=== PATIENT | male | born 1945 | race Caucasian/White ===

== ENCOUNTER 2018-03-03 15:21 | Inpatient (IN) | payer MEDICARE, MEDICAID ==
[~2018-03-03] VITALS: Ht 180.3 cm; Wt 95.7 kg
[2018-03-03] MEDS ORDERED: SODIUM CHLORIDE 0.9% 1,000 ML IV ONE (15:38)
[2018-03-03 16:18] LABS: BG BASE EXCESS 4.2 mmol/L (-2.0-2.0); BG CARBOXYHEMOGLOBIN 1.3 % (0.5-1.5); BG DEOXYHEMOGLOBIN 3.1 % (0.0-5.0); BG FRACTION INSPIRED OXYGEN 28; BG HCO3 ACT 30.1 mmol/L (22.0-26.0); BG METHEMOGLOBIN 0.3 % (0.0-1.5); BG OXYGEN SATURATION 96.8 % (92.0-98.5); BG OXYHEMOGLOBIN 95.3 % (94.0-97.0); BG PCO2 50.2 mmHg (35.0-45.0); BG PH 7.396 (7.350-7.450); BG SAMPLE SITE LEFT RADIAL; BG TOTAL HEMOGLOBIN 14.1 g/dL (12.0-18.0); BG VENT MODE NASAL CANNULA
[2018-03-03 16:59] LABS: BASOPHILS % 0.1 % (0.0-2.0); EOSINOPHILS % 0.3 % (0.0-5.0); HEMATOCRIT. 45.1 % (42.0-52.0); HEMOGLOBIN. 14.3 g/dL (14.0-18.0); LYMPHOCYTES % 9.7 % (20.0-50.0); MEAN CORPUSCULAR VOLUME 85.2 fL (80.0-94.0); MEAN PLATELET VOLUME 10.9 fl (7.4-10.4); MONOCYTES % 12.6 % (2.0-8.0); NEUTROPHILS % 77.3 % (40.0-76.0); PLATELET 110 x1000/uL (130-400); RED CELL DISTRIBUTION WIDTH 16.2 % (11.6-14.6)
[2018-03-03 17:01] LABS: CHLORIDE 99 mEq/L (98-107); INR 1.2; PARTIAL THROMBOPLASTIN TIME 25.9 sec (23.4-31.0); PROTHROMBIN TIME 12.5 sec (9.1-11.1)
[2018-03-03 17:07] LABS: ETHANOL BLOOD < 10 mg/dL
[2018-03-03] MEDS ORDERED: LEVOFLOXACIN 500MG PREMIX 100 ML IV ONE (17:30)
[2018-03-03 20:30] LABS: METHADONE URINE SCREEN NEGATIVE (NEGATIVE); OPIATES URINE SCREEN PRESUMTIVE POSITIVE (NEGATIVE)
[2018-03-03 20:31] LABS: *AMPHETAMINES SCREEN URINE NEGATIVE (NEGATIVE); *BARBITURATES SCREEN URINE NEGATIVE (NEGATIVE); *BENZODIAZEPINES SCREEN URINE NEGATIVE (NEGATIVE); *COCAINE SCREEN URINE NEGATIVE (NEGATIVE); CANNABINOID URINE SCREEN NEGATIVE (NEGATIVE); PHENCYCLIDINE URINE SCREEN NEGATIVE (NEGATIVE)
[2018-03-03 20:45] LABS: KETONES URINE NEGATIVE (NEGATIVE); LEUKOCYTE ESTERASE URINE NEGATIVE (NEGATIVE); NITRITE URINE NEGATIVE (NEGATIVE); OCCULT BLOOD URINE NEGATIVE (NEGATIVE); PROTEIN URINE NEGATIVE (NEGATIVE); SPECIFIC GRAVITY URINE 1.017 (1.005-1.030)
[2018-03-03 20:48] LABS: CLARITY URINE SLIGHTLY HAZY (CLEAR)
[2018-03-03 20:49] LABS: COLOR URINE YELLOW (YELLOW)
[2018-03-04] VITALS (12 sets, daily range): BP systolic 99–146; BP diastolic 50–78
[2018-03-04] MEDS ORDERED: CARV6.2548 MT (02:09)
[2018-03-04] MEDS ORDERED: BISA10SU62 RC (02:23)
[2018-03-04] MEDS ORDERED: DILT60TA35 MT (02:23)
[2018-03-04] MEDS ORDERED: FURO40TA5 MT (02:23)
[2018-03-04] MEDS ORDERED: LACT10SO7 PO (02:23)
[2018-03-04] MEDS ORDERED: DOCU250C14 MT (02:23)
[2018-03-04] MEDS ORDERED: CLON0.1T PO (02:23)
[2018-03-04] MEDS ORDERED: LOSA25TA12 MT (02:23)
[2018-03-04] MEDS ORDERED: AMIN30LI2 PO (02:36)
[2018-03-04] MEDS ORDERED: MULT-230 MT (02:36)
[2018-03-04] MEDS ORDERED: LOV40 SQ (02:36)
[2018-03-04] MEDS ORDERED: ZINC220T MT (02:36)
[2018-03-04] MEDS ORDERED: ASCO500C15 MT (02:36)
[2018-03-04] MEDS ORDERED: INSU100I13 SQ (02:36)
[2018-03-04] MEDS ORDERED: HYDR-4001 MT (02:36)
[2018-03-04] MEDS ORDERED: IPRATROPIUM/ALBUTEROL 0.5-3(2.5)MG/3ML NEB INH PRN (03:00)
[2018-03-04] MEDS ORDERED: ENOXAPARIN 120MG/0.8ML SYR SUBCUT SCH (04:00)
[2018-03-04] MEDS ORDERED: DEXTROSE 50% WATER 50ML SYRINGE IV PRN (06:30)
[2018-03-04] MEDS: BLOOD SUGAR DIAGNOSTIC STRIP TEST SCH ×4 (06:38→21:37)
[2018-03-04] MEDS: INSULIN LISPRO 100 UNITS/ML SUBCUT SCH ×5 (08:14→21:38)
[2018-03-04] MEDS ORDERED: IPRATROPIUM/ALBUTEROL 0.5-3(2.5)MG/3ML NEB HHN PRN (16:45)
[2018-03-04] MEDS ORDERED: WARFARIN SODIUM 3MG TABLET PO NR (18:00)
[2018-03-04] MEDS: CEFTRIAXONE 1 G PREMIX 50 ML IV SCH (18:31)
[2018-03-04] MEDS: DIGOXIN 125MCG TABLET PO SCH (18:34)
[2018-03-04 19:22] LABS: PROTHROMBIN TIME 40.4 sec (9.1-11.1)
[2018-03-04] MEDS: ACETAMINOPHEN 325MG TABLET PO PRN (21:36)
[2018-03-04] MEDS: NYSTATIN 100,000 UNITS/GM CREAM 15GM TOP SCH (21:37)
[2018-03-04] MEDS ORDERED: HYDROCODONE/ACETAMINOPHEN 10/325MG TABLET PO PRN (22:30)
[2018-03-04] MEDS ORDERED: MORPHINE SULFATE 4 MG/ML CPJ (NOT FOR IM USE) IV NR (22:30)
[2018-03-04] MEDS ORDERED: HYDROCODONE/ACETAMINOPHEN 5/325MG TABLET PO PRN (22:30)
[2018-03-04 23:12] LABS: INR 4.1
[2018-03-05] VITALS (30 sets, daily range): BP systolic 92–150; BP diastolic 40–91
[2018-03-05] MEDS: IPRATROPIUM/ALBUTEROL 0.5-3(2.5)MG/3ML NEB HHN SCH (02:03)
[2018-03-05] MEDS: INSULIN LISPRO 100 UNITS/ML SUBCUT SCH ×4 (06:37→22:05)
[2018-03-05] MEDS: BLOOD SUGAR DIAGNOSTIC STRIP TEST SCH ×4 (06:37→21:00)
[2018-03-05] MEDS ORDERED: LIDOCAINE HCL 1% 10 MG/ML 10ML VIAL ONE (07:58)
[2018-03-05] MEDS ORDERED: BACITRACIN ZINC 15GM TUBE TOP ONE (07:58)
[2018-03-05] MEDS ORDERED: HEPARIN SODIUM 1,000 UNIT/1ML VIAL IV ONE (07:59)
[2018-03-05] MEDS ORDERED: GELATIN SPONGE,COMPRESSED SZ 100 ONE (07:59)
[2018-03-05] MEDS ORDERED: BUPIVACAINE HCL/PF 0.5% (5MG/ML) 10ML ONE (07:59)
[2018-03-05] MEDS ORDERED: THROMBIN (BOVINE) 5000 UNITS/VIAL TOP ONE (07:59)
[2018-03-05] MEDS ORDERED: SODIUM CHLORIDE 0.9% 1,000 ML ONE (08:00)
[2018-03-05] MEDS ORDERED: BACITRACIN 50,000 UNITS/VIAL ONE (08:00)
[2018-03-05] MEDS: NYSTATIN 100,000 UNITS/GM CREAM 15GM TOP SCH ×2 (08:33→21:00)
[2018-03-05] MEDS ORDERED: PHENYLEPHRINE HCL 10 MG/ML 1ML (IV VIAL) IV ONE (09:10)
[2018-03-05] MEDS ORDERED: CEFAZOLIN 1000MG PREMIX 50 ML IV SCH (09:30)
[2018-03-05] MEDS ORDERED: MORPHINE SULFATE 2 MG/ML CPJ (NOT FOR IM USE) IV PRN (09:30)
[2018-03-05] MEDS ORDERED: MORPHINE SULFATE 4 MG/ML CPJ (NOT FOR IM USE) IV PRN (10:00)
[2018-03-05 13:07] LABS: BG BASE EXCESS 6.6 mmol/L (-2.0-2.0); BG CARBOXYHEMOGLOBIN 1.4 % (0.5-1.5); BG DEOXYHEMOGLOBIN 5.2 % (0.0-5.0); BG HCO3 ACT 31.7 mmol/L (22.0-26.0); BG METHEMOGLOBIN 0.2 % (0.0-1.5); BG OXYGEN SATURATION 94.7 % (92.0-98.5); BG OXYHEMOGLOBIN 93.2 % (94.0-97.0); BG PCO2 46.7 mmHg (35.0-45.0); BG PO2 69.6 mmHg (75.0-100.0); BG SAMPLE SITE RIGHT BRACHIAL; BG TOTAL HEMOGLOBIN 15.4 g/dL (12.0-18.0); BG VENT MODE ROOM AIR
[2018-03-05] MEDS ORDERED: VERAPAMIL HCL 2.5 MG/1 ML 2ML VIAL IV PRN (14:15)
[2018-03-05] MEDS: DILTIAZEM HCL 60MG TABLET PO SCH ×2 (14:50→21:54)
[2018-03-05] MEDS: DIGOXIN 125MCG TABLET PO SCH (17:18)
[2018-03-05] MEDS: CEFTRIAXONE 1 G PREMIX 50 ML IV SCH (17:52)
[2018-03-05] MEDS: ACETAMINOPHEN 325MG TABLET PO PRN (21:53)
[2018-03-05 22:56] LABS: INR 1.2; PROTHROMBIN TIME 11.7 sec (9.1-11.1)
[2018-03-06] VITALS (33 sets, daily range): BP systolic 89–160; BP diastolic 38–96
[2018-03-06 05:13] LABS: BASOPHILS % 0.1 % (0.0-2.0); EOSINOPHILS % 0.3 % (0.0-5.0); HEMATOCRIT. 46.8 % (42.0-52.0); HEMOGLOBIN. 14.7 g/dL (14.0-18.0); LYMPHOCYTES % 12.4 % (20.0-50.0); MEAN CORPUSCULAR HEMOGLOBIN 26.7 pg (28.0-32.0); MEAN CORPUSCULAR VOLUME 85.2 fL (80.0-94.0); MONOCYTES % 14.8 % (2.0-8.0); NEUTROPHILS % 72.4 % (40.0-76.0); PLATELET 130 x1000/uL (130-400); RED CELL DISTRIBUTION WIDTH 16.3 % (11.6-14.6)
[2018-03-06 05:16] LABS: CHLORIDE 102 mEq/L (98-107)
[2018-03-06 05:19] LABS: INR 1.2; PROTHROMBIN TIME 12.5 sec (9.1-11.1)
[2018-03-06] MEDS: DILTIAZEM HCL 60MG TABLET PO SCH ×3 (05:51→21:16)
[2018-03-06 07:38] LABS: BG BASE EXCESS 7.3 mmol/L (-2.0-2.0); BG CARBOXYHEMOGLOBIN 1.3 % (0.5-1.5); BG DEOXYHEMOGLOBIN 1.4 % (0.0-5.0); BG FRACTION INSPIRED OXYGEN 24; BG HCO3 ACT 35.3 mmol/L (22.0-26.0); BG METHEMOGLOBIN 0.4 % (0.0-1.5); BG OXYGEN SATURATION 98.6 % (92.0-98.5); BG OXYHEMOGLOBIN 96.9 % (94.0-97.0); BG PCO2 64.3 mmHg (35.0-45.0); BG PH 7.358 (7.350-7.450); BG PO2 134.1 mmHg (75.0-100.0); BG SAMPLE SITE RIGHT BRACHIAL; BG TOTAL HEMOGLOBIN 15.1 g/dL (12.0-18.0); BG VENT MODE NASAL CANNULA
[2018-03-06] MEDS: BLOOD SUGAR DIAGNOSTIC STRIP TEST SCH ×4 (07:50→20:46)
[2018-03-06] MEDS: IPRATROPIUM/ALBUTEROL 0.5-3(2.5)MG/3ML NEB HHN SCH ×3 (08:20→20:51)
[2018-03-06] MEDS: INSULIN LISPRO 100 UNITS/ML SUBCUT SCH ×4 (09:14→21:17)
[2018-03-06] MEDS: NYSTATIN 100,000 UNITS/GM CREAM 15GM TOP SCH ×2 (09:16→21:18)
[2018-03-06] MEDS ORDERED: FUROSEMIDE 40MG/4ML VIAL IVP SCH (12:45)
[2018-03-06] MEDS ORDERED: FUROSEMIDE 40MG TABLET PO NR (13:45)
[2018-03-06] MEDS ORDERED: SULFAMETHOXAZOLE/TRIMETHOPRIM 800/160MG TABLET PO ONE (17:00)
[2018-03-06] MEDS ORDERED: SULFAMETHOXAZOLE/TRIMETHOPRIM 800/160MG TABLET PO NR (17:00)
[2018-03-06] MEDS: CEFTRIAXONE 1 G PREMIX 50 ML IV SCH ×2 (18:08→18:11)
[2018-03-06] MEDS: DIGOXIN 125MCG TABLET PO SCH (18:38)
[2018-03-06] MEDS ORDERED: FUROSEMIDE 40MG TABLET PO SCH (21:00)
[2018-03-06] MEDS: ACETAMINOPHEN 325MG TABLET PO PRN (21:11)
[2018-03-07] VITALS (43 sets, daily range): BP systolic 101–154; BP diastolic 50–95
[2018-03-07] MEDS ORDERED: FUROSEMIDE 40MG TABLET PO SCH ×2 (04:00→21:00)
[2018-03-07] MEDS: DILTIAZEM HCL 60MG TABLET PO SCH ×3 (05:00→21:05)
[2018-03-07 05:44] LABS: BASOPHILS % 0.3 % (0.0-2.0); EOSINOPHILS % 0.9 % (0.0-5.0); HEMATOCRIT. 44.6 % (42.0-52.0); HEMOGLOBIN. 14.3 g/dL (14.0-18.0); LYMPHOCYTES % 12.9 % (20.0-50.0); MEAN CORPUSCULAR HEMOGLOBIN 26.8 pg (28.0-32.0); MEAN CORPUSCULAR VOLUME 83.5 fL (80.0-94.0); MEAN PLATELET VOLUME 10.5 fl (7.4-10.4); MONOCYTES % 12.7 % (2.0-8.0); NEUTROPHILS % 73.2 % (40.0-76.0); PLATELET 111 x1000/uL (130-400); RED BLOOD CELL COUNT 5.34 mill/uL (4.7-6.1); RED CELL DISTRIBUTION WIDTH 16.2 % (11.6-14.6)
[2018-03-07 06:25] LABS: CHLORIDE 101 mEq/L (98-107)
[2018-03-07] MEDS: BLOOD SUGAR DIAGNOSTIC STRIP TEST SCH ×4 (07:50→21:02)
[2018-03-07] MEDS: IPRATROPIUM/ALBUTEROL 0.5-3(2.5)MG/3ML NEB HHN SCH ×3 (07:58→20:19)
[2018-03-07] MEDS: INSULIN LISPRO 100 UNITS/ML SUBCUT SCH ×4 (08:20→21:06)
[2018-03-07] MEDS: NYSTATIN 100,000 UNITS/GM CREAM 15GM TOP SCH ×2 (08:56→21:02)
[2018-03-07] MEDS ORDERED: LOSARTAN POTASSIUM 25 MG TABLET PO SCH (09:00)
[2018-03-07 09:01] LABS: BG BASE EXCESS 7.2 mmol/L (-2.0-2.0); BG CARBOXYHEMOGLOBIN 1.8 % (0.5-1.5); BG DEOXYHEMOGLOBIN 5.5 % (0.0-5.0); BG FRACTION INSPIRED OXYGEN 21; BG HCO3 ACT 31.6 mmol/L (22.0-26.0); BG METHEMOGLOBIN 0.3 % (0.0-1.5); BG OXYGEN SATURATION 94.4 % (92.0-98.5); BG OXYHEMOGLOBIN 92.4 % (94.0-97.0); BG PCO2 43.4 mmHg (35.0-45.0); BG PO2 69.9 mmHg (75.0-100.0); BG SAMPLE SITE RIGHT BRACHIAL; BG TOTAL HEMOGLOBIN 14.4 g/dL (12.0-18.0); BG VENT MODE ROOM AIR
[2018-03-07] MEDS: FUROSEMIDE 40MG/4ML VIAL IVP SCH ×2 (12:03→23:05)
[2018-03-07] MEDS: LOSARTAN POTASSIUM 25 MG TABLET PO SCH (14:44)
[2018-03-07] MEDS: CEFTRIAXONE 1 G PREMIX 50 ML IV SCH (17:45)
[2018-03-07] MEDS: DIGOXIN 125MCG TABLET PO SCH (17:46)
[2018-03-08] VITALS (47 sets, daily range): BP systolic 97–178; BP diastolic 16–110
[2018-03-08] MEDS: IPRATROPIUM/ALBUTEROL 0.5-3(2.5)MG/3ML NEB HHN SCH ×4 (00:42→21:06)
[2018-03-08] MEDS: DILTIAZEM HCL 60MG TABLET PO SCH ×3 (05:04→22:41)
[2018-03-08 05:41] LABS: BASOPHILS % 0.2 % (0.0-2.0); EOSINOPHILS % 1.5 % (0.0-5.0); HEMATOCRIT. 44.3 % (42.0-52.0); HEMOGLOBIN. 14.2 g/dL (14.0-18.0); LYMPHOCYTES % 16.8 % (20.0-50.0); MEAN CORPUSCULAR HEMOGLOBIN 26.8 pg (28.0-32.0); MEAN CORPUSCULAR VOLUME 83.8 fL (80.0-94.0); MEAN PLATELET VOLUME 10.5 fl (7.4-10.4); MONOCYTES % 14.7 % (2.0-8.0); NEUTROPHILS % 66.8 % (40.0-76.0); PLATELET 105 x1000/uL (130-400); RED BLOOD CELL COUNT 5.28 mill/uL (4.7-6.1); RED CELL DISTRIBUTION WIDTH 16.2 % (11.6-14.6)
[2018-03-08 05:47] LABS: CHLORIDE 98 mEq/L (98-107)
[2018-03-08 07:15] LABS: INR 1.2; PROTHROMBIN TIME 12.3 sec (9.1-11.1)
[2018-03-08] MEDS ORDERED: HEPARIN 100 UNITS/1 ML VIAL ONE (07:19)
[2018-03-08] MEDS ORDERED: BACITRACIN ZINC 15GM TUBE TOP ONE (07:20)
[2018-03-08] MEDS ORDERED: BUPIVACAINE HCL/PF 0.5% (5MG/ML) 10ML ONE (07:20)
[2018-03-08] MEDS ORDERED: THROMBIN (BOVINE) 5000 UNITS/VIAL TOP ONE (07:20)
[2018-03-08] MEDS ORDERED: GELATIN SPONGE,COMPRESSED SZ 100 ONE (07:20)
[2018-03-08] MEDS ORDERED: LIDOCAINE HCL 1% 10 MG/ML 10ML VIAL ONE (07:20)
[2018-03-08] MEDS ORDERED: HEPARIN SODIUM 1,000 UNIT/1ML VIAL IV ONE (07:21)
[2018-03-08] MEDS ORDERED: BACITRACIN 50,000 UNITS/VIAL ONE (07:21)
[2018-03-08] MEDS ORDERED: NORMAL SALINE 0.9% 10 ML SYR ONE (07:22)
[2018-03-08] MEDS ORDERED: MORPHINE SULFATE 4 MG/ML CPJ (NOT FOR IM USE) IV PRN (07:30)
[2018-03-08] MEDS: BLOOD SUGAR DIAGNOSTIC STRIP TEST SCH ×4 (07:50→21:00)
[2018-03-08] MEDS ORDERED: FENTANYL CITRATE/PF 50MCG/ML 2ML VIAL ONE (07:54)
[2018-03-08] MEDS ORDERED: PROPOFOL 200MG/20ML VIAL IV ONE ×2 (07:54→09:31)
[2018-03-08] MEDS ORDERED: MIDAZOLAM HCL 2 MG/2 ML VIAL ONE (07:55)
[2018-03-08] MEDS ORDERED: DEXAMETHASONE 4MG/ML 1ML VIAL ONE (07:58)
[2018-03-08] MEDS ORDERED: ONDANSETRON HCL 4MG/2ML INJ ONE (07:58)
[2018-03-08] MEDS ORDERED: ROCURONIUM BROMIDE 10MG/ML VIAL 5ML IV ONE (08:07)
[2018-03-08] MEDS: INSULIN LISPRO 100 UNITS/ML SUBCUT SCH ×4 (08:20→21:00)
[2018-03-08] MEDS ORDERED: CEFAZOLIN SODIUM 1000MG/VIAL ONE (08:23)
[2018-03-08] MEDS ORDERED: SODIUM CHLORIDE 0.9% 10ML VIAL ONE (08:23)
[2018-03-08] MEDS ORDERED: MEPERIDINE HCL/PF 25MG/ML CPJ IV PRN (08:30)
[2018-03-08] MEDS ORDERED: ONDANSETRON HCL 4MG/2ML INJ IV PRN (08:30)
[2018-03-08] MEDS ORDERED: LABETALOL 5MG/ML SYR 20 MG/4 ML SYRINGE IV PRN (08:30)
[2018-03-08] MEDS ORDERED: ALBUTEROL 90MCG/PUFF 17GM INHALER INH ONE (08:52)
[2018-03-08] MEDS ORDERED: LOSARTAN POTASSIUM 50 MG TABLET PO SCH (09:00)
[2018-03-08] MEDS ORDERED: GLYCOPYRROLATE 0.2 MG/ML 2ML VIAL ONE ×2 (09:32→09:37)
[2018-03-08] MEDS ORDERED: NEOSTIGMINE METHYLSULFATE 1MG/ML 10 ML VIAL ONE (09:32)
[2018-03-08] MEDS: HYDROMORPHONE HCL/PF 2MG/ML CPJ IV PRN ×2 (09:59→11:29)
[2018-03-08] MEDS: LOSARTAN POTASSIUM 25 MG TABLET PO SCH (10:18)
[2018-03-08] MEDS: FUROSEMIDE 40MG/4ML VIAL IVP SCH ×2 (10:18→23:30)
[2018-03-08] MEDS: NYSTATIN 100,000 UNITS/GM CREAM 15GM TOP SCH ×2 (10:18→22:40)
[2018-03-08] MEDS: DIGOXIN 125MCG TABLET PO SCH (17:22)
[2018-03-08] MEDS: CEFTRIAXONE 1 G PREMIX 50 ML IV SCH (17:26)
[2018-03-09] VITALS (16 sets, daily range): BP systolic 92–150; BP diastolic 44–98
[2018-03-09] MEDS: IPRATROPIUM/ALBUTEROL 0.5-3(2.5)MG/3ML NEB HHN SCH ×4 (00:58→20:24)
[2018-03-09] MEDS: BLOOD SUGAR DIAGNOSTIC STRIP TEST SCH ×4 (07:43→20:58)
[2018-03-09] MEDS: DILTIAZEM HCL 60MG TABLET PO SCH ×3 (07:43→20:58)
[2018-03-09] MEDS: LOSARTAN POTASSIUM 25 MG TABLET PO SCH (09:00)
[2018-03-09] MEDS: FUROSEMIDE 40MG/4ML VIAL IVP SCH (10:28)
[2018-03-09] MEDS: INSULIN LISPRO 100 UNITS/ML SUBCUT SCH ×4 (10:30→20:57)
[2018-03-09] MEDS: NYSTATIN 100,000 UNITS/GM CREAM 15GM TOP SCH ×2 (10:34→20:59)
[2018-03-09 13:05] LABS: CHLORIDE 99 mEq/L (98-107)
[2018-03-09] MEDS: ENOXAPARIN 100MG/ML SYR SUBCUT SCH (15:23)
[2018-03-09] MEDS: DIGOXIN 125MCG TABLET PO SCH (17:46)
[2018-03-09] MEDS: CEFTRIAXONE 1 G PREMIX 50 ML IV SCH (17:47)
[2018-03-10] VITALS (10 sets, daily range): BP systolic 99–136; BP diastolic 41–83
[2018-03-10] MEDS: IPRATROPIUM/ALBUTEROL 0.5-3(2.5)MG/3ML NEB HHN SCH ×4 (01:06→20:02)
[2018-03-10] MEDS: ENOXAPARIN 100MG/ML SYR SUBCUT SCH ×3 (02:26→21:22)
[2018-03-10] MEDS: DILTIAZEM HCL 60MG TABLET PO SCH (05:33)
[2018-03-10 07:01] LABS: BASOPHILS % 0.2 % (0.0-2.0); EOSINOPHILS % 0.7 % (0.0-5.0); HEMATOCRIT. 40.8 % (42.0-52.0); HEMOGLOBIN. 13.1 g/dL (14.0-18.0); LYMPHOCYTES % 14.6 % (20.0-50.0); MEAN CORPUSCULAR HEMOGLOBIN 26.5 pg (28.0-32.0); MEAN PLATELET VOLUME 10.6 fl (7.4-10.4); NEUTROPHILS % 71.5 % (40.0-76.0); PLATELET 87 x1000/uL (130-400); RED BLOOD CELL COUNT 4.92 mill/uL (4.7-6.1); RED CELL DISTRIBUTION WIDTH 16.4 % (11.6-14.6)
[2018-03-10 07:16] LABS: CHLORIDE 98 mEq/L (98-107)
[2018-03-10] MEDS: INSULIN LISPRO 100 UNITS/ML SUBCUT SCH ×4 (07:43→21:22)
[2018-03-10] MEDS: BLOOD SUGAR DIAGNOSTIC STRIP TEST SCH ×4 (07:43→21:22)
[2018-03-10] MEDS: FUROSEMIDE 40MG/4ML VIAL IVP SCH (08:49)
[2018-03-10] MEDS: LOSARTAN POTASSIUM 25 MG TABLET PO SCH (08:50)
[2018-03-10] MEDS ORDERED: POTASSIUM CHLORIDE 20MEQ TABLET SR PO NR (10:15)
[2018-03-10] MEDS: DILTIAZEM HCL 90MG TABLET PO SCH ×2 (14:28→21:27)
[2018-03-10] MEDS: NYSTATIN 100,000 UNITS/GM CREAM 15GM TOP SCH ×2 (14:28→21:24)
[2018-03-10] MEDS: DIGOXIN 125MCG TABLET PO SCH (17:45)
[2018-03-10] MEDS: CEFTRIAXONE 1 G PREMIX 50 ML IV SCH (17:46)
[2018-03-11] VITALS (12 sets, daily range): BP systolic 113–133; BP diastolic 58–82
[2018-03-11] MEDS: IPRATROPIUM/ALBUTEROL 0.5-3(2.5)MG/3ML NEB HHN SCH ×4 (00:08→20:33)
[2018-03-11 06:58] LABS: BASOPHILS % 0.2 % (0.0-2.0); EOSINOPHILS % 1.1 % (0.0-5.0); HEMATOCRIT. 39.4 % (42.0-52.0); HEMOGLOBIN. 12.9 g/dL (14.0-18.0); LYMPHOCYTES % 12.7 % (20.0-50.0); MEAN CORPUSCULAR HEMOGLOBIN 27.3 pg (28.0-32.0); MEAN CORPUSCULAR VOLUME 83.5 fL (80.0-94.0); MEAN PLATELET VOLUME 10.8 fl (7.4-10.4); MONOCYTES % 9.8 % (2.0-8.0); NEUTROPHILS % 76.2 % (40.0-76.0); PLATELET 102 x1000/uL (130-400); RED BLOOD CELL COUNT 4.72 mill/uL (4.7-6.1); RED CELL DISTRIBUTION WIDTH 16.5 % (11.6-14.6)
[2018-03-11] MEDS: DILTIAZEM HCL 90MG TABLET PO SCH ×3 (07:22→21:17)
[2018-03-11 07:44] LABS: CHLORIDE 98 mEq/L (98-107)
[2018-03-11] MEDS: BLOOD SUGAR DIAGNOSTIC STRIP TEST SCH ×4 (07:44→21:18)
[2018-03-11] MEDS: INSULIN LISPRO 100 UNITS/ML SUBCUT SCH ×4 (07:45→21:00)
[2018-03-11] MEDS: LOSARTAN POTASSIUM 25 MG TABLET PO SCH (09:30)
[2018-03-11] MEDS: FUROSEMIDE 40MG/4ML VIAL IVP SCH (09:30)
[2018-03-11] MEDS: ENOXAPARIN 100MG/ML SYR SUBCUT SCH ×2 (09:30→21:18)
[2018-03-11] MEDS: NYSTATIN 100,000 UNITS/GM CREAM 15GM TOP SCH ×2 (09:31→21:19)
[2018-03-11] MEDS: DIGOXIN 125MCG TABLET PO SCH (17:55)
[2018-03-11] MEDS: CEFTRIAXONE 1 G PREMIX 50 ML IV SCH (17:55)
[2018-03-12] VITALS (12 sets, daily range): BP systolic 103–130; BP diastolic 51–70
[2018-03-12] MEDS: IPRATROPIUM/ALBUTEROL 0.5-3(2.5)MG/3ML NEB HHN SCH ×4 (01:39→21:13)
[2018-03-12] MEDS: DILTIAZEM HCL 90MG TABLET PO SCH ×2 (05:57→15:07)
[2018-03-12] MEDS: INSULIN LISPRO 100 UNITS/ML SUBCUT SCH ×3 (08:00→17:50)
[2018-03-12] MEDS: LOSARTAN POTASSIUM 25 MG TABLET PO SCH (08:17)
[2018-03-12] MEDS: ENOXAPARIN 100MG/ML SYR SUBCUT SCH (08:18)
[2018-03-12] MEDS: BLOOD SUGAR DIAGNOSTIC STRIP TEST SCH ×3 (08:18→17:46)
[2018-03-12] MEDS ORDERED: FUROSEMIDE 40MG/4ML VIAL IVP SCH (09:00)
[2018-03-12 10:00] LABS: CHLORIDE 99 mEq/L (98-107)
[2018-03-12] MEDS: NYSTATIN 100,000 UNITS/GM CREAM 15GM TOP SCH (11:18)
[2018-03-12] MEDS ORDERED: POTASSIUM CHLORIDE 20MEQ TABLET SR PO NR (11:38)
[2018-03-12] MEDS: DIGOXIN 125MCG TABLET PO SCH (17:44)
== END 2018-03-12 22:15 | DRG 853 ==
LOC: ER 15:21 → 3WST 15:40 → EDBEDREQ 18:13 → ENRESERV 21:35 → CVICU 03-05 12:00 → 5EST 03-09 13:22
PROVIDERS: ADMIT Emergency Medicine; ATTEND Emergency Medicine
PROC: 0JB70ZZ Excision of Back Subcutaneous Tissue and Fascia, Open Approach (ICD-10-PCS; principal; 2018-03-04)
PROC: 02HV33Z Insertion of Infusion Device into Superior Vena Cava, Percutaneous Approach (ICD-10-PCS; 2018-03-07)
PROC: B548ZZA Ultrasonography of Superior Vena Cava, Guidance (ICD-10-PCS; 2018-03-07)
PROC: 5A09357 Assistance with Respiratory Ventilation, Less than 24 Consecutive Hours, Continuous Positive Airway Pressure (ICD-10-PCS; 2018-03-07)
PROC: 041L0JL Bypass Left Femoral Artery to Popliteal Artery with Synthetic Substitute, Open Approach (ICD-10-PCS; 2018-03-08)
PROC: 04CL0ZZ Extirpation of Matter from Left Femoral Artery, Open Approach (ICD-10-PCS; 2018-03-08)
PROC: 5A09357 Assistance with Respiratory Ventilation, Less than 24 Consecutive Hours, Continuous Positive Airway Pressure (ICD-10-PCS; 2018-03-12)
DX: A41.9 Sepsis, unspecified organism (principal); L89.153 Pressure ulcer of sacral region, stage 3; I50.43 Acute on chronic combined systolic (congestive) and diastolic (congestive) heart failure; J96.02 Acute respiratory failure with hypercapnia; E11.52 Type 2 diabetes mellitus with diabetic peripheral angiopathy with gangrene; I69.351 Hemiplegia and hemiparesis following cerebral infarction affecting right dominant side; E44.0 Moderate protein-calorie malnutrition; N39.0 Urinary tract infection, site not specified; I42.9 Cardiomyopathy, unspecified; D68.9 Coagulation defect, unspecified; I11.0 Hypertensive heart disease with heart failure; I48.2 Chronic atrial fibrillation; I27.20 Pulmonary hypertension, unspecified; I99.8 Other disorder of circulatory system; B96.20 Unspecified Escherichia coli [E. coli] as the cause of diseases classified elsewhere; B96.89 Other specified bacterial agents as the cause of diseases classified elsewhere; D69.6 Thrombocytopenia, unspecified; E78.5 Hyperlipidemia, unspecified; E87.6 Hypokalemia; I25.10 Atherosclerotic heart disease of native coronary artery without angina pectoris; Z89.511 Acquired absence of right leg below knee; Z99.3 Dependence on wheelchair; Z89.611 Acquired absence of right leg above knee; Z79.899 Other long term (current) drug therapy; Z79.4 Long term (current) use of insulin; Z68.29 Body mass index [BMI] 29.0-29.9, adult
CPT/HCPCS: 36415; 36569; 36600; 70450; 71045; 76937; 80048; 80053; 80305; 81003; 82375; 82805; 82962; 83605; 83690; 83735; 83880; 84134; 84484; 85025; 85610; 85730; 86850; 86900; 86920; 87040; 87077; 87086; 87186; 88304; 93005; 93306; 94640; 94660; 96365; 96368; 96372; 99291; A4216; A6261; C1725; C1768; C1893; G0482; J0690; J0696; J1100; J1170; J1642; J1644; J1650; J1815; J1940; J1956; J2250; J2270; J2370; J2405; J2704; J2710; J3010; J3490; J7030; J7040; J7050; J7620; A4315